=== PATIENT | male | born 1955 | race Hispanic/Latino ===

== ENCOUNTER 2017-07-12 14:00 | Emergency (ER) | payer MEDICAID, OTHER, SELFPAY ==
[2017-07-12] MEDS ORDERED: METHYLPREDNISOLONE SOD SUCC 125MG/2ML VIAL ONE (14:09)
[2017-07-12] MEDS ORDERED: DiphenhydrAMINE HCL 50 MG/ML VIAL ONE (14:09)
[2017-07-12] MEDS ORDERED: FAMOTIDINE/PF 20 MG/2 ML VIAL IV ONE (14:21)
[2017-07-12] MEDS ORDERED: EPINEPHRINE 1 MG/ML AMPULE ONE (14:52)
== END 2017-07-12 16:16 | disposition home or self-care (01) ==
LOC: EDH 14:00
DX: T78.09XA Anaphylactic reaction due to other food products, initial encounter (principal); Z91.013 Allergy to seafood; I10 Essential (primary) hypertension
CPT/HCPCS: 96361; 96374; 99285; 96375; J0171; J1200; J2930; J3490